=== PATIENT | female | born 1980 | race Caucasian/White ===

== ENCOUNTER 2017-09-03 22:20 | Emergency (ER) | payer BC, OTHER ==
[2017-09-04 01:28] LABS: ABS Basophils 0.2 10^3/ul (0-0.2); ABS Eosinophils 0.2 10^3/ul (0-0.6); ABS Lymphocytes 3.1 10^3/ul (1.0-4.8); ABS Monocytes 1.1 10^3/ul (0-0.8); ABS Nucleated RBC 0 10^3/ul; Eosinophil % 1.4 % (0-6); Hematocrit 40 % (35-47); Hemoglobin 13.1 g/dl (12.0-16.0); Lymphocyte % 27.2 % (25-47); Mean Corpuscular HGB Conc 33 g/dl (31-36); Mean Corpuscular Hemoglobin 26 pg (27-31); Mean Corpuscular Volume 79 fL (80-97); Mean Platelet Volume 6.4 um3 (7.4-10.4); Nucleated Red Blood Cells % 0; Platelet Count 330 10^3/ul (150-450); Red Cell Distribution Width 14 % (10.5-15); White Blood Count 11.6 10^3/ul (3.5-10.8)
[2017-09-04] MEDS ORDERED: NS 0.9% 1000 ML* 1,000 ML IV ONE (01:39)
[2017-09-04] MEDS ORDERED: Morphine VIAL* 10 MG/ML 1 ML VIAL IV ONE (01:39)
[2017-09-04] MEDS ORDERED: Ondansetron INJ* 2 MG/ML VIAL IV PRN (01:39)
[2017-09-04] MEDS ORDERED: Morphine VIAL* 4 MG/ML VIAL (1 ml vial) IV STA (01:48)
[2017-09-04 01:50] LABS: EGFR Non-African American 76.1 (>60)
[2017-09-04] MEDS ORDERED: Morphine VIAL* 4 MG/ML VIAL (1 ml vial) IV ONE (02:00)
--- NOTE | 2017-09-04 02:00 | ED ---
Abdominal Pain/Female - HPI Summary HPI Summary: Patient came back from [place] one week ago complains of persistent diarrhea, and intermittent abdominal pain 1 week. Abdominal pain described as umbilical , intermittent, crampy, bloating. Also complains of decreased appetite, nausea after eating. Able to tolerate fluids by mouth. Seen at urgent care 1 day after coming back, was given a prescription for unknown antibiotic, Zofran, Imodium. Patient states she has not been taking. States fever and rash initially which have since resolved. Also denies cough, sore throat, CP, SOB, vomiting, urinary symptoms, vaginal symptoms. LMP 08/15. Denies . Medical history is IBS, as reflux. Abdominal/surgical history is none. - History of Current Complaint Chief Complaint: EDAbdPain Stated Complaint: ABD PAIN Time Seen by Provider: 09/04/17 01:06 Hx Obtained From: Patient Onset/Duration: Gradual Onset, Lasting Days Timing: Intermittent Episode Lasting Severity Initially: Mild Pain Intensity: 9 Pain Scale Used: 0-10 Numeric Location: Umbilical Radiates: No Character: Sharp, Dull, Cramping Aggravating Factor(s): Food Alleviating Factor(s): Nothing Associated Signs and Symptoms: Positive: Nausea Allergies/Adverse Reactions: Allergies Allergy/AdvReac Type Severity Reaction Status Date / Time No Known Allergies Allergy Verified 09/03/17 22:22 Home Medications: Home Medications ALPRAZolam [Xanax] 0.5 mg PO DAILY PRN 09/04/17 [History Confirmed 09/04/17] Cetirizine* [ZyrTEC 10 MG TAB*] 10 mg PO DAILY 09/04/17 [History Confirmed 09/04] L. Acidophilus/L. Rhamnosus [Probiotic 15 Billion Cell Cap] 1 each PO DAILY [History Confirmed 09/04/17] Lansoprazole [Prevacid] 30 mg PO DAILY 09/04/17 [History Confirmed 09/04/17] Magnesium Oxide [Magnesium] 250 mg PO DAILY 09/04/17 [History Confirmed 09/04/17 ] Naproxen Sodium [Aleve] 440 mg PO Q12HR PRN 09/04/17 [History Confirmed 09/04/17 ] raNITIdine HCl [Zantac] 150 mg PO DAILY 09/04/17 [History Confirmed 09/04/17] PMH/Surg Hx/FS Hx/Imm Hx Endocrine/Hematology History: Denies: Hx Anticoagulant Therapy Respiratory History: Denies: Hx Lung Cancer History: Denies: Hx Dialysis Neurological History: Denies: Hx CVA Infectious Disease History: No Infectious Disease History: Reports: Traveled Outside the [place] in Last 30 Days - [place] - Social History Alcohol Use: Occasionally Substance Use Type: Reports: Other Substance Use Comment - Amount & Last Used: CBD Smoking Status (MU): Former Smoker Review of Systems Constitutional: Negative Eyes: Negative ENT: Negative Cardiovascular: Negative Respiratory: Negative Positive: Abdominal Pain, Diarrhea, Nausea Genitourinary: Negative Musculoskeletal: Negative Skin: Negative Neurological: Negative Psychological: Normal All Other Systems Reviewed And Are Negative: Yes Physical Exam - Summary Physical Exam Summary: Abdomen tender to palpation in umbilical and epigastric area. No right lower quadrant or right upper quadrant or right or left lower quadrant tenderness to palpation Triage Information Reviewed: Yes Vital Signs On Initial Exam: Initial Vitals Temp Pulse Resp BP Pulse Ox 98 F 100 18 130/97 98 09/03/17 22:22 09/03/17 22:22 09/03/17 22:22 09/03/17 22:22 09/03/17 22:22 Vital Signs Reviewed: Yes Appearance: Positive: Well-Appearing Skin: Positive: Warm Head/Face: Positive: Normal Head/Face Inspection Eyes: Positive: Normal Neck: Positive: Supple Respiratory/Lung Sounds: Positive: Clear to Auscultation Cardiovascular: Positive: Normal Abdomen Description: Positive: Other: Musculoskeletal: Positive: Normal Neurological: Positive: Normal Psychiatric: Positive: Normal AVPU Assessment: Alert - [place] Coma Scale Best Eye Response: 4 - Spontaneous Best Motor Response: 6 - Obeys Commands Best Verbal Response: 5 - Oriented Coma Scale Total: 15 Diagnostics - Vital Signs Vital Signs Temp Pulse Resp BP Pulse Ox 09/04/17 00:58 97.8 F 101 18 128/91 98 09/03/17 22:22 98 F 100 18 130/97 98 - Laboratory Lab Results: Lab Results 09/04/17 09/04/17 09/04/17 Range/Units 01:21 01:21 01:21 WBC 11.6 H (3.5-10.8) 10^3/ul RBC 5.00 (4.00-5.40) 10^6/ul Hgb 13.1 (12.0-16.0) g/dl Hct 40 (35-47) % MCV 79 L (80-97) fL MCH 26 L (27-31) pg MCHC 33 (31-36) g/dl RDW 14 (10.5-15) % Plt Count 330 (150-450) 10^3/ul MPV 6.4 L (7.4-10.4) um3 Neut % (Auto) 60.9 (38-83) % Lymph % (Auto) 27.2 (25-47) % [place] % (Auto) 9.1 H (0-7) % Eos % (Auto) 1.4 (0-6) % Baso % (Auto) 1.4 (0-2) % Absolute Neuts (auto) 7.0 (1.5-7.7) 10^3/ul Absolute Lymphs (auto) 3.1 (1.0-4.8) 10^3/ul Absolute Monos (auto) 1.1 H (0-0.8) 10^3/ul Absolute Eos (auto) 0.2 (0-0.6) 10^3/ul Absolute Basos (auto) 0.2 (0-0.2) 10^3/ul Absolute Nucleated RBC 0 10^3/ul Nucleated RBC % 0 Sodium 138 (135-145) mmol/L Potassium 3.8 (3.5-5.0) mmol/L Chloride 103 (101-111) mmol/L Carbon Dioxide 24 (22-32) mmol/L Anion Gap 11 (2-11) mmol/L BUN 15 (6-24) mg/dL Creatinine 0.85 (0.51-0.95) mg/dL Est GFR ( Amer) 92.1 (>60) Est GFR (Non-Af Amer) 76.1 (>60) BUN/Creatinine Ratio 17.6 (8-20) Glucose 109 H (70-100) mg/dL Lactic Acid 1.7 (0.5-2.0) mmol/L Calcium 10.1 (8.6-10.3) mg/dL Total Bilirubin 0.30 (0.2-1.0) mg/dL AST 21 (13-39) U/L ALT 20 (7-52) U/L Alkaline Phosphatase 94 (34-104) U/L C-Reactive Protein 14.04 H (<8.01) mg/L Total Protein 7.3 (6.4-8.9) g/dL Albumin 4.5 (3.2-5.2) g/dL Globulin 2.8 (2-4) g/dL Albumin/Globulin Ratio 1.6 (1-3) Lipase 21 (11.0-82.0) U/L Beta HCG, Quant Pending Result Diagrams: 09/04/17 01:21 09/04/17 01:21 Lab Statement: Any lab studies that have been ordered have been reviewed, and results considered in the medical decision making process. Abdominal Pain Fem Course/Dx - Course Course Of Treatment: Patient came back from [place] one week ago complains of persistent diarrhea, and intermittent abdominal pain 1 week. Abdominal pain described as umbilical, intermittent, crampy, bloating. Also complains of decreased appetite, nausea after eating. Able to tolerate fluids by mouth. Seen at urgent care 1 day after coming back, was given a prescription for unknown antibiotic, Zofran, Imodium. Patient states she has not been taking. States fever and rash initially which have since resolved. Also denies cough, sore throat, CP, SOB, vomiting, urinary symptoms, vaginal symptoms. LMP 6/24. Denies . Medical history is IBS, as reflux. Abdominal/surgical history is none. Abdomen tender to palpation in umbilical and epigastric area. No right lower quadrant or right upper quadrant or right or left lower quadrant tenderness to palpation. Vital signs within normal limits and stable. White count 11.6, otherwise unremarkable labs unremarkable. Abdominal x-ray shows moderate stool burden. Rx for Cipro 500 mg twice a day 10 days for traveler's diarrhea. Return for any new or worsening symptoms - Diagnoses Provider Diagnoses: Travelers' diarrhea Discharge - Sign-Out/Discharge Documenting (check all that apply): Patient Departure - Discharge Plan Condition: Stable Disposition: HOME Prescriptions: Ciprofloxacin HCl [Cipro] 500 mg PO BID 10 Days #20 tablet Patient Education Materials: Traveler's Diarrhea (ED) Referrals: No Primary Care Phys,NOPCP [Primary Care Provider] - Additional Instructions: Take antibiotics as directed. Maintain hydration. Return to the ED for any new or worsening symptoms - Billing Disposition and Condition Condition: STABLE Disposition: Home
[2017-09-04] MEDS ORDERED: Ciprofloxacin TAB* 500 MG PO ONE (02:01)
[2017-09-04 04:28] VITALS: BP 140/86
--- NOTE | 2017-09-04 11:20 | RAD ---
INDICATION: Abdominal pain COMPARISON: None TECHNIQUE: 2 views the abdomen were obtained. FINDINGS: There are no acute bony or soft tissue abnormalities. The bowel gas pattern is normal. There is a moderate amount of stool overlying the renal shadows. There are no obvious coarse calcifications overlying the expected location of the bilateral collecting systems or ureters. IMPRESSION:Normal KUB. R1
== END 2017-09-04 04:33 | disposition home or self-care (01) ==
LOC: ED 22:20
DX: A09 Infectious gastroenteritis and colitis, unspecified (principal); K58.9 Irritable bowel syndrome, unspecified; K21.9 Gastro-esophageal reflux disease without esophagitis; Z87.891 Personal history of nicotine dependence
CPT/HCPCS: 36415; 74018; 80053; 83605; 83690; 84702; 85025; 86140; 96361; 96374; 96375; 99283; A9270-GY; J2270; J2405